=== PATIENT | male | born 1965 | race Two or more races ===

== ENCOUNTER 2017-10-13 15:58 | Outpatient (CLI) | payer BC ==
--- NOTE | 2017-10-14 08:32 | Diagnostic Imaging Report ---
Indication: Cough Technique: 2 views of the chest Comparison: None Findings: Lungs and pleural spaces are clear. The heart size is normal. The bones are unremarkable. Inspiration is suboptimal Impression: Negative
== END 2017-10-13 17:58 | disposition home or self-care (01) ==
LOC: RAD 15:58
DX: R05 Cough (principal)
CPT/HCPCS: 71046